=== PATIENT | male | born 1960 | race Caucasian/White ===

== ENCOUNTER 2016-07-12 22:13 | Observation (INO) ==
[2016-07-12] MEDS ORDERED: methylPREDNISolone SOD SUC 125 MG/2 ML VIAL IV STA (22:59)
[2016-07-12] MEDS ORDERED: MORPHINE 2 MG/1 ML SYRINGE IV STA (22:59)
[2016-07-12] MEDS ORDERED: ASPIRIN 325 MG TABLET PO STA (22:59)
[2016-07-12] MEDS ORDERED: NITROGLYCERIN 2% OINT 1 INCH/GM PACK TOP STA (22:59)
[2016-07-12] MEDS ORDERED: FUROSEMIDE 100 MG/10 ML VIAL IV STA (22:59)
[2016-07-12] MEDS ORDERED: ONDANSETRON 4 MG/2 ML VIAL IV STA (22:59)
[2016-07-12] MEDS ORDERED: ALBUTEROL 2.5 MG/3 ML NEB RESP TX SCH (23:00)
--- NOTE | 2016-07-12 23:03 | EKG Report ---
Stationary ECG Study [facility] ER Test Date: 07/12/2016 10:27:30 PM Pat Name: BETHEL ROWLAND Department: Room: Gender: M [employer] Detailer: Ravi : 1960 Requested by: Wes Talavera Order Number: [id number] Ibeth MD: KIM RAMESH Intervals Tracy Rate: 94 P: 81 VA: 159 QRS: 88 QRSD: 97 T: 46 QT: 364 QTc: 415 Interpretive Statements SINUS RHYTHM Electronically Signed On 07-13-16 09:21:57 SENIOR AGRICULTURAL ASSISTANT by KIM RAMESH [email or web address]
[2016-07-12 23:10] LABS: Basophils # 0.1 10*3/uL (0.0-0.2); Basophils % 0.9 % (0.0-0.8); Eosinophils # 0.3 10*3/uL (0.0-0.87); Eosinophils % 2.6 % (0.00-10.9); Hematocrit 41.9 VOL% (42.0-52.0); Hemoglobin 14.1 GM/DL (14.0-18.0); Immature Granulocytes % 0.3 %; Immature Granulocytes Absolute 0.03 #; Lymphocytes # 3.5 10*3/uL (1.4-4.0); Lymphocytes % 36.3 % (21.2-54.2); Mean Corpuscular HGB Conc 33.7 GM/DL (32-36); Mean Corpuscular Hemoglobin 27 PG (27-34); Mean Corpuscular Volume 80.4 FL (87-102); Monocytes # 0.9 10*3/uL (0.11-0.8); Monocytes % 9.1 % (1.7-12.7); Neutrophils # 4.9 10*3/uL (1.4-7.4); Neutrophils % 50.8 % (38.7-73.9); Platelet Count 257 10*3/uL (130-400); Red Blood Count 5.21 10*6/uL (3.8-5.5); Red Cell Distribution Width 13.2 % (9.3-17.3); White Blood Count 9.7 10*3/uL (4.5-13.71)
--- NOTE | 2016-07-12 23:13 | Emergency Department Note ---
David Lee Brittany, am scribing for, and in the presence of, Wes Mehta MD 23:06. Janine Lee Charles R, MD, personally performed the services described in this documentation, ascribed by Latisha Hernandez in my presence, and it is both accurate and complete 313 . Arrival - Arrival Chief Complaint: Chest Pain Stated Complaint: CHEST PAIN/SOB ED Nursing Triage Note: C/C shortness of breath, left arm pain, anxiety, arms tingling started this morning. Has been out of his ultram for several days. Mode of Arrival: Wheelchair Limitations: No Limitations Source: Patient, Significant other, RN Notes Reviewed Time Seen by Provider: 07/12/16 22:53 - History of Present Illness HPI Narrative: Patient is a 55 y/o white male with a history significant for COPD presenting to the ED with c/o dyspnea with an onset of this morning. Patient also has c/o chest pain with deep breaths, anxiety, and tingling of the bilateral fingertips. reports that patient has been out of Ultram for about 2 days, and notes that he becomes "agitated" when he goes without. She notes that patient has bad toenails and fingernails. She reports that she has tried, on multiple occasions, to discuss with patient the importance of cessation of smoking, but she states that he has not quit yet and in fact smokes a pack to two and a half packs/day. Patient has no other complaint/pain in the ED. Allergies/Adverse Reactions: Allergies Allergy/AdvReac Type Severity Reaction Status Date / Time No Known Allergies Allergy Verified 07/12/16 22:26 Home Medications: Home Medications Medication Instructions Recorded Confirmed Type traMADol TAB [Ultram] 100 mg PO BID 02/14/15 07/12/16 History Review of System - Review of System 12 point system: reviewed and no additional remarkable complaints except as stated - Review of System Respiratory: Present: respiratory distress Neurological: Present: paresthesias (bilateral hands) Psychiatric: Present: anxiety Medical,Surgical,& Family Hx - Medical History Neurology: No history of: Seizures HEENT: History of: Eye Problem (GLASSES) Respiratory: History of: COPD, Obstructive Sleep Apnea (CPAP) Genitourinary: History of: Kidney Stones Gastrointestinal: History of: Diverticulitis/ Diverticulosis Musculoskeletal: History of: Amputation (LBKA), Back/Neck Problems Other: History of: MRSA (LEFT HAND AND LEFT FOOT) - Surgical History Abdominal Surgeries: Surgical HX of: Abdominal Surgery, Cholecystectomy, Colonoscopy, EGD Orthopedic Surgeries: Surgical HX of;: Implanted Devices (LEFT ANKLE SCREWS) - Family History Family History: Reports;: Family Diabetes (BROTHER), Family Hypertension (FATHER ), Family Stroke (MOTHER) - Social History Smoking Status: Current every day smoker Frequency of Alcohol Use: Rarely Type of Drug Use: None Exam Vital Signs: Vital Signs Temperature 98.4 F 07/12/16 22:18 Pulse Rate 112 H 07/13/16 00:41 Respiratory Rate 20 07/13/16 00:41 Blood Pressure 134/96 07/12/16 22:18 O2 Sat by Pulse Oximetry 100 07/13/16 00:41 - General General appearance: alert, in no apparent distress, anxious - Head Head exam: Present: atraumatic, normocephalic - Eye Eye exam: Present: PERRL, EOMI - ENT ENT exam: Present: mucous membranes moist, TM's normal bilaterally - Neck Neck exam: Present: full ROM, trachea midline. Absent: tenderness - Chest Chest inspection: Present: symmetric chest wall rise. Absent: tenderness - Respiratory Respiratory exam: Present: rhonchi (bilateral), wheezes. Absent: normal lung sounds bilaterally - Cardiovascular Cardiovascular exam: Present: normal rhythm, tachycardia, normal heart sounds. Absent: regular rate - Abdominal Exam Abdominal exam: Present: soft, normal bowel sounds. Absent: distention, tenderness - Extremities Exam Extremities exam: Present: full ROM. 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 Absent: tenderness - Neurological Exam Neurological exam: Present: alert, oriented X3 - Psychiatric Psychiatric exam: Present: anxious - Skin Skin exam: Present: warm, dry, intact, normal color Course - Consultations Consultation #1: Dr. Keller the patient admits Dr. Carpio Time: 00:51 Results - Labs CBC & BMP: 07/12/16 22:57 07/12/16 22:57 Lab Results: I have reviewed the patients labs Labs: Laboratory Tests 07/12/16 22:57 WBC 9.7 RBC 5.21 Hgb 14.1 Hct 41.9 L MCV 80.4 L MCH 27 MCHC 33.7 RDW 13.2 Plt Count 257 MPV 10.0 Neut % (Auto) 50.8 Lymph % (Auto) 36.3 [place] % (Auto) 9.1 Eos % (Auto) 2.6 Baso % (Auto) 0.9 H Neut # (Auto) 4.9 Lymph # (Auto) 3.5 [place] # (Auto) 0.9 H Eos # (Auto) 0.3 Baso # (Auto) 0.1 Immature Gran % 0.3 Nucleated RBC % 0.0 Immature Gran # 0.03 Nucleated RBCs # 0.00 Laboratory Tests 07/12/16 07/12/16 22:57 22:57 INR 1.0 PT Patient/Control Mix 10.0 D-Dimer, Quantitative <= 0.5 Sodium 145 Potassium 3.7 Chloride 111 H Carbon Dioxide 24 Anion Gap 13.7 BUN 11 Creatinine 1.00 GFR Calculation 120 BUN/Creatinine Ratio 11.00 Glucose 115 H Calculated Osmolality 287.7 Calcium 8.6 Magnesium 2.0 Total Bilirubin < 0.39 AST 14 ALT 16 Alkaline Phosphatase 127 H Troponin I < 0.015 Total Protein 7.1 Albumin 3.2 L Globulin 3.9 H Albumin/Globulin Ratio 0.8 L Laboratory Tests 07/12/16 07/12/16 07/12/16 22:57 23:14 23:14 B-Natriuretic Peptide 4 Urine Color Yellow Urine Appearance Clear Urine pH 6.0 Ur Specific [place] 1.020 Urine Protein Negative Urine Glucose (UA) Negative Urine Ketones 5 Urine Blood Small Urine Nitrate Negative Urine Bilirubin Negative Urine Urobilinogen 2.0 H Urine Leukocytes Negative Urine RBC 12 Urine WBC 1 Urine Bacteria Occasional Hyaline Casts 4 Urine Mucus Occasional Urine Opiates Screen Negative Ur Barbiturates Screen Negative Ur Phencyclidine Scrn Negative U Amphetamine/Methamph Negative U Benzodiazepines Scrn Negative U Cocaine Metab Screen Negative U Cannabinoids Screen Negative Disposition Clinical Impression: Chest pain, Atypical chest pain, Tobacco abuse, Acute exacerbation of chronic obstructive airways disease, Exertional dyspnea, Stable angina Case discussed with: patient, patient's family Disposition: Still a Patient Condition: Stable Time of Disposition: 00:52
[2016-07-12 23:17] LABS: D-Dimer <= 0.5 MG/L FEU
[2016-07-12] MEDS ORDERED: NITROGLYCERIN 2% OINT 1 INCH/GM PACK TOP ONE (23:18)
[2016-07-12] MEDS ORDERED: ONDANSETRON 4 MG/2 ML VIAL ONE (23:18)
[2016-07-12] MEDS ORDERED: FUROSEMIDE 100 MG/10 ML VIAL ONE (23:19)
[2016-07-12] MEDS ORDERED: ASPIRIN 325 MG TABLET ONE (23:19)
[2016-07-12] MEDS ORDERED: MORPHINE 2 MG/1 ML SYRINGE ONE (23:19)
[2016-07-12] MEDS ORDERED: methylPREDNISolone SOD SUC 125 MG/2 ML VIAL ONE (23:19)
[2016-07-12 23:28] LABS: Alanine Aminotransferase 16 U/L (16-61); Albumin 3.2 G/DL (3.4-5.0); Alkaline Phosphatase 127 U/L (45-117); Aspartate Amino Transferase 14 U/L (0-37); Bilirubin,Total < 0.39 MG/DL (0.2-1.0); Blood Urea Nitrogen 11 MG/DL (7-18); Calcium 8.6 MG/DL (8.5-10.1); Glucose 115 MG/DL (74-106); Osmolality,Calculated 287.7 MOS/KG (273-304); Potassium 3.7 MMOL/L (3.5-5.1); Sodium 145 MMOL/L (136-145); Total Protein 7.1 G/DL (6.4-8.3); Troponin I Only < 0.015 NG/ML (0.00-0.045)
[2016-07-12 23:47] LABS: Apearance,Urine CLEAR (Clear); Bacteria,Urine Occasional /HPF (Few); Bilirubin,Urine Negative (Negative); Blood, Urine Small mg/dL (Negative); Glucose,Urine (UA) Negative (Negative); Hyaline Casts,Urine 4 /LPF (0-3); Ketones,Urine 5 mg/dL (Negative); Mucus,Urine Occasional /LPF (Occasional); Nitrite,Urine Negative (Negative); Protein,Urine Negative; RBC,Urine 12 /HPF (0-4); Urine Color Yellow (Yellow); WBC,Urine 1 /HPF (0-6)
[2016-07-12 23:52] LABS: Barbiturates Screen,Urine Negative (Negative); Benzodiazepines Screen,Urine Negative (Negative); Cannabinoid Screen,Urine Negative (Negative); Opiate Screen,Urine Negative (Negative); Phencyclidine Screen,Urine Negative (Negative)
[2016-07-13] MEDS ORDERED: ENOXAPARIN 120 MG/0.8 ML SYRINGE SUBCUT SCH (02:00)
[2016-07-13] MEDS ORDERED: SODIUM CHLORIDE 0.9% 1,000 ML IV SCH (02:10)
[2016-07-13] MEDS ORDERED: ONDANSETRON 4 MG/2 ML VIAL IV PRN (02:10)
[2016-07-13] MEDS ORDERED: ALBUTEROL/IPRATROPIUM 3 ML NEB RESP TX PRN (02:10)
[2016-07-13] MEDS ORDERED: MORPHINE 2 MG/1 ML SYRINGE IV PRN ×2 (02:10)
[2016-07-13 04:53] LABS: Basophils % 0.1 % (0.0-0.8); Eosinophils % 0.1 % (0.00-10.9); Hematocrit 41.5 VOL% (42.0-52.0); Hemoglobin 13.9 GM/DL (14.0-18.0); Immature Granulocytes % 0.6 %; Immature Granulocytes Absolute 0.05 #; Lymphocytes # 0.9 10*3/uL (1.4-4.0); Lymphocytes % 11.1 % (21.2-54.2); Mean Corpuscular HGB Conc 33.5 GM/DL (32-36); Mean Corpuscular Hemoglobin 27 PG (27-34); Mean Corpuscular Volume 80.4 FL (87-102); Mean Platelet Volume 10.1 FL (9.6-12.0); Monocytes # 0.1 10*3/uL (0.11-0.8); Monocytes % 1.2 % (1.7-12.7); Neutrophils % 86.9 % (38.7-73.9); Platelet Count 250 10*3/uL (130-400); Red Blood Count 5.16 10*6/uL (3.8-5.5); Red Cell Distribution Width 13.1 % (9.3-17.3); White Blood Count 8.1 10*3/uL (4.5-13.71)
[2016-07-13 05:25] LABS: Troponin I Only < 0.015 NG/ML (0.00-0.045)
[2016-07-13 05:36] LABS: Albumin 3.3 G/DL (3.4-5.0); Bilirubin,Total 0.4 MG/DL (0.2-1.0); Calcium 8.9 MG/DL (8.5-10.1); Magnesium 1.9 MG/DL (1.8-2.4); Potassium 3.8 MMOL/L (3.5-5.1); Risk Ratio 5.23; Thyroid Stimulating Hormone 1.33 uIU/ml (0.358-3.74); Total Protein 7.5 G/DL (6.4-8.3); VLDL CHOLESTEROL 16.8 MG/DL
--- NOTE | 2016-07-13 06:39 | Hospitalist History & Physical ---
Assessment and Plan - Time spent with patient Time spent discussing smoking cessation with patient: 3 to 10 minutes (1) Atypical chest pain Status: Acute Current Visit: Yes (2) Shortness of breath Status: Acute Current Visit: Yes (3) Smoker Status: Acute Current Visit: Yes (4) Obstructive sleep apnea Status: Acute Current Visit: Yes (5) COPD (chronic obstructive pulmonary disease) Status: Acute Assessment and plan: Plan: 07/12: We'll observe on telemetry, check serial cardiac enzymes. He is a smoker but otherwise has no hypertension, diabetes, or family history of heart disease. His pain and breathing are "much better." EKG and biomarkers thus far negative. His chest x-ray appears negative as well. This workup unrevealing we'll likely discharge home in the morning. Of note he said he had a stress test "a few years ago," he doesn't know where but according to him it was negative. Current Visit: Yes History of Present Illness Chief complaint: pain across the chest with shortness of breath History of present illness: Mr. Morejon is a 55 year old male with COPD, noncompliant as he continues to smoke a pack a day, noncompliant with CPAP, reported acute onset of bandlike pain across his chest sharp in nature round 5 p.m. and shortness of breath. He had no cough pain did not radiate although he felt brief sensation of tingling in his arms. He rated the pain as 5 out of 10 at worst. Of note he's been out of his tramadol for "a little while," and according to his he gets a little agitated when he is out of his tramadol. Chest x-ray EKG and biomarkers are negative at this point. His symptoms are constant but improving with medicine in the ER. He has no history of heart disease, no family history of heart disease, no history of hypertension, dyslipidemia, or diabetes. He states it "hurt a little bit to press on my chest," when I had the pain. Currently at the bedside he appears comfortable. Home Medications Medication Instructions Recorded Confirmed Type traMADol TAB [Ultram] 100 mg PO BID 02/14/15 07/12/16 History Albuterol Sulfate [Proair HFA] 2 puff INH Q4H PRN 07/13/16 07/13/16 History Allergies Allergy/AdvReac Type Severity Reaction Status Date / Time No Known Allergies Allergy Verified 07/12/16 22:26 Medical,Surgical,& Family Hx - Medical History Cardio: No history of: CAD, Hypertension, [place] Neurology: No history of: Seizures HEENT: History of: Eye Problem (GLASSES) Endocrine: No history of: Diabetes Mellitus (NIDDM) Respiratory: History of: COPD, Obstructive Sleep Apnea (NON COMPLIANT WITH CPAP) Genitourinary: History of: Kidney Stones Gastrointestinal: History of: Diverticulitis/ Diverticulosis Musculoskeletal: History of: Amputation (LBKA), Back/Neck Problems Other: History of: MRSA (LEFT HAND AND LEFT FOOT) - Surgical History Cardiac Surgeries: Patient Denies: Cardiac Catheterization Thoracic Surgeries: Patient denies;: Organ Transplant, Lobectomy Neurologic Surgeries: Patient denies: Neurologic Surgery Abdominal Surgeries: Surgical HX of: Abdominal Surgery, Cholecystectomy, Colonoscopy, EGD Reproductive Surgeries: Patient denies;: Genitourinary Surgery Orthopedic Surgeries: Surgical HX of;: Implanted Devices (LEFT ANKLE SCREWS) - Family History Family History: Reports;: Family Diabetes (BROTHER), Family Hypertension (FATHER ), Family Stroke (MOTHER) - Social History Smoking Status: Current every day smoker Have you smoked in the last 12 months: Yes Time spent discussing smoking cessation with patient: 3 to 10 minutes Frequency of Alcohol Use: Rarely Type of Drug Use: None Marital Status: Review of systems: A 12 point review of systems is negative except as specified in the HPI Exam - Constitutional Vitals: Period Temp Pulse Resp BP Sys/Mac Pulse Ox Last 24 Hr 96.8 F-98.4 F 94-101 14-20 101-142/54-84 95-97 Exam: EXAM: CONSTITUTIONAL: non toxic, NAD HEENT: NC, AT, OP benign, DIONNA, EOMI CV: RRR no m/g/r, chest wall nontender RESP: Distant breath sounds bilaterally, no w/r/r GI: abd soft, NT, ND, +bowel sounds INTEGUMENTARY: no lesions or rash EXTREMITIES: Consistent with left BKA NEURO: no focal deficits PSYCH: unremarkable, A/O x3 Results - Labs CBC & BMP: 07/13/16 04:29 07/13/16 04:29 Lab Results: I have reviewed the past 24 hour labs - EKG EKG shows: sinus rhythm - Diagnostic Findings Procedure: Chest x-ray: image reviewed by me
[2016-07-13] MEDS: NITROGLYCERIN 2% OINT 1 INCH/GM PACK TOP SCH ×4 (06:43→23:43)
--- NOTE | 2016-07-13 07:42 | XRay Report ---
History is short of breath Comparison 09/30/2015 The heart is normal in size. The lungs are clear. Impression: No acute pathology seen. PROCEDURE INTERPRETED AT [facility] DEPARTMENT OF RADIOLOGY Final Report Signed by: Dr. Leny Gregorio
--- NOTE | 2016-07-13 08:09 | XRay Report ---
Referring Physician: Wes Mehta Exam: XR chest 1V portable Date: July 13, 2016 at 5:45 AM Reason: Shortness of breath Comparison: Chest one view portable July 12, 2016, chest PA lateral April 26, 2013 Findings: The cardiac silhouette is normal in size. No focal consolidation, pneumothorax or pleural effusion is identified. There is mild stable apical pleural thickening. The osseous structures appear stable. Impression: No acute cardiopulmonary process is identified. PROCEDURE INTERPRETED AT [facility] DEPARTMENT OF RADIOLOGY Final Report Signed by: Dr. Gayle Kaminski
[2016-07-13] MEDS: ASPIRIN EC 325 MG TABLET PO SCH (08:48)
[2016-07-13] MEDS: PANTOPRAZOLE 40 MG TABLET PO SCH (08:48)
[2016-07-13] MEDS: traMADol 50 MG TABLET PO SCH ×2 (08:48→20:28)
[2016-07-13] MEDS: methylPREDNISolone SOD SUC 40 MG/1 ML VIAL IV SCH ×3 (08:49→23:40)
[2016-07-13] MEDS ORDERED: MAGNESIUM SULF RIDER 2 GM in PREMIX 1 EACH IV PRN (14:10)
[2016-07-13] MEDS ORDERED: DIAZEPAM 5 MG TABLET PO ONE (14:10)
[2016-07-13] MEDS ORDERED: POTASSIUM CHLORIDE RIDER 10 MEQ in PREMIX 1 EACH IV PRN (14:10)
[2016-07-13] MEDS ORDERED: diphenhydrAMINE CAP 25 MG CAPSULE PO ONE (14:10)
--- NOTE | 2016-07-13 14:26 | Cardiology Consult Note ---
<Mimi Agarwal E - Last Filed: 07/13/16 14:18> Assessment and Plan - Time spent with patient Time spent with patient: Greater than 30 minutes (1) Dyslipidemia Status: Acute Assessment and plan: New diagnoses. We'll start a lipid-lowering agent. Current Visit: Yes (2) Exertional dyspnea Status: Acute Assessment and plan: The plan of care listed above. Current Visit: Yes (3) Obstructive sleep apnea Status: Chronic Current Visit: No (4) Tobacco abuse Status: Chronic Assessment and plan: Greater than 5 minutes was spent discussing the merits of tobacco cessation. Current Visit: Yes (5) Chest pain Status: Acute Assessment and plan: Concerning for angina. Current Visit: Yes History of Present Illness - Data of Consult Patient: new to practice Consult date: 07/13/16 Requesting Physician: Rosita Carpio - Consult Narrative Reason for consult: chest pain, SOB History of present illness: Mr. Morejon is a 55 year old male who has never been followed by cardiology. Risk factors include: tobaccoism, hyperlipidemia, (new diagnosis), obesity and sedentary lifestyle. 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 Patient presented to the emergency department of [facility] after experiencing chest pain located in the left upper chest area, radiating down his left arm and shortness of breath. He acknowledges over the past 6-7 months, his shortness of breath with exertion has significantly worsened to the point that he finds himself avoiding numerous activities that he previously performed. Over the past week, patient has begun to experience left-sided chest discomfort with exertion. Particularly, yesterday and Wednesday while walking in the [place], he began to experience chest discomfort he describes as "[id number]". It radiated from the left upper chest to the shoulder and down his left arm. Rest relieves the discomfort. This occurred several times yesterday throughout the day when he returned home. He seemed to worsen last night when he was laying down individually this was relieved on its own. This morning, when he and his daughter walked outside to smoke a cigarette the discomfort reoccurred while walking back from the smoke area. He is currently chest pain-free. He is unable to rate the discomfort on a scale of 1-10. It did not cause diaphoresis, nausea vomiting or fatigue. ASSESSMENT/PLAN: 1. Chest pain - concerning for angina. I will undergo cardiac catheterization in the morning to be performed by Dr. Hillman. 2. DAVIS - multifactorial. We will schedule heart catheterization in the morning should his CT of chest and venous ultrasound returned with normal results. 3. Hyperlipidemia - start lipid lowering agent 4. Tobaccoism - themerits of tobacco cessation was discussed for greater than 5 minutes 5. AMBROCIO - non-compliant. Needs reassurance 6. COPD - being treated appropriately at this time CC: Rosita Carpio MD - Home Medications and Allergies Home Medications: Home Medications Medication Instructions Recorded Confirmed Type traMADol TAB [Ultram] 100 mg PO BID 02/14/15 07/12/16 History Albuterol Sulfate [Proair HFA] 2 puff INH Q4H PRN 07/13/16 07/13/16 History Allergies/Adverse Reactions: Allergies Allergy/AdvReac Type Severity Reaction Status Date / Time No Known Allergies Allergy Verified 07/12/16 22:26 Review of systems: REVIEW OF SYSTEMS: - Constitutional Constitutional: Present: Fatigue. Absent: syncope, anorexia, night sweats - EENT Eyes: Absent: blurry vision, loss of vision, diplopia Ears: Absent: decreased hearing, ear pain, ear discharge - Cardiovascular Cardiovascular: Present: chest pain with exertion, dyspnea on exertion, right lower extremity swelling. Denies palpitations. Absent: chest pain with deep breath, claudication, - Respiratory Respiratory: Present: DAVIS, cough. Absent: wheezing, hemoptysis, change in phlegm color - Gastrointestinal Gastrointestinal: Denies: constipation. Absent: abdominal pain, hematemesis, hematochezia, melena, change in bowel habits, nausea - Genitourinary Genitourinary: Absent: difficulty urinating, dysuria, urinary hesitancy, flank pain - Musculoskeletal Musculoskeletal: Present: back pain Absent: joint swelling, muscle cramps, muscle weakness - Neurological Neurological: Present: normal gait without frequent falls. Absent: dizziness, hemiparesis - Psychiatric Psychiatric: Absent: anxiety, depression, difficulty concentrating - Endocrine Endocrine: Present: fatigue. Absent: cold intolerance, heat intolerance, polyuria, polyphagia, polydipsia - Hematologic/Lymphatic Hematologic/Lymphatic: Present: easy bruising. Absent: easy bleeding, easy bruisability -Integumentary Integumentary: Absent: lesions, rashes, skin breakdown Medical,Surgical,& Family Hx - Medical History Cardio: No history of: CAD, Hypertension, [place] Neurology: No history of: Seizures HEENT: History of: Eye Problem (GLASSES) Endocrine: No history of: Diabetes Mellitus (NIDDM) Respiratory: History of: COPD, Obstructive Sleep Apnea (NON COMPLIANT WITH CPAP) Genitourinary: History of: Kidney Stones Gastrointestinal: History of: Diverticulitis/ Diverticulosis Musculoskeletal: History of: Amputation (LBKA), Back/Neck Problems Other: History of: MRSA (LEFT HAND AND LEFT FOOT) - Surgical History Cardiac Surgeries: Patient Denies: Cardiac Catheterization Thoracic Surgeries: Patient denies;: Organ Transplant, Lobectomy Neurologic Surgeries: Patient denies: Neurologic Surgery Abdominal Surgeries: Surgical HX of: Abdominal Surgery, Cholecystectomy, Colonoscopy, EGD Reproductive Surgeries: Patient denies;: Genitourinary Surgery Orthopedic Surgeries: Surgical HX of;: Implanted Devices (LEFT ANKLE SCREWS) - Family History Family History: Reports;: Family Diabetes (BROTHER), Family Hypertension (FATHER ), Family Stroke (MOTHER) - Social History Smoking Status: Current every day smoker Have you smoked in the last 12 months: Yes Time spent discussing smoking cessation with patient: 3 to 10 minutes Frequency of Alcohol Use: Rarely Type of Drug Use: None Marital Status: Lives With:: Spouse Functional capacity: independent ambulation Physical Examination Vital Signs Temp Pulse Resp BP Pulse Ox 98.4 F 92 H 24 134/96 99 07/12/16 22:18 07/12/16 22:18 07/12/16 22:18 07/12/16 22:18 07/12/16 22:18 General: Appears well with no apparent distress. Pleasant and cooperative. Appears comfortable. HEENT: PERRL, normocephalic, atraumatic. Mucous membranes moist. No jaundice noted. Conjunctiva moist and clear, sclerae anicteric Neck: No JVD/HJR, no thyromegaly or lymphadenopathy noted. No carotid bruit appreciated Cardiac: Regular rate and rhythm. No murmur rub or gallop. Lungs: Clear to auscultation without accessory muscle use to assist the respiratory pattern. Not requiring oxygen at this time. Abdomen: Soft, bowel sounds normoactive. Nontender and nondistended. No abdominal bruit or thrill noted. No masses noted. Musculoskeletal: No fluid collection. Decreased range of motion is noted. Extremities: No clubbing, cyanosis noted. No edema noted. Upper extremity pulses 2+. Right lower extremity trace edema. 2+ posterior tibial and dorsalis pedis pulses noted to the right lower extremity. Left below knee amputation noted. Capillary refill less than 3 seconds. Skin: No unusual lesions or rashes. No skin breakdown appreciated. Neuro: Awake, alert and oriented 3. Moves all extremities well without hemiparesis or paralysis. No essential tremor is appreciated. Result/EKG - Labs CBC & BMP: 07/13/16 04:29 07/13/16 04:29 Lab Results: I have reviewed the past 24 hour labs Labs: Laboratory Results - last 24 hr 07/13/16 07/13/16 07/13/16 04:29 04:29 04:29 WBC 8.1 RBC 5.16 Hgb 13.9 L Hct 41.5 L MCV 80.4 L MCH 27 MCHC 33.5 RDW 13.1 Plt Count 250 MPV 10.1 Neut % (Auto) 86.9 H Lymph % (Auto) 11.1 L Otero % (Auto) 1.2 L Eos % (Auto) 0.1 Baso % (Auto) 0.1 Neut # (Auto) 7.0 Lymph # (Auto) 0.9 L Otero # (Auto) 0.1 L Eos # (Auto) 0.0 Baso # (Auto) 0.0 Immature Gran % 0.6 Nucleated RBC % 0.0 Immature Gran # 0.05 Nucleated RBCs # 0.00 Sodium 143 Potassium 3.8 Chloride 106 Carbon Dioxide 24 Anion Gap 16.8 H BUN 11 Creatinine 1.00 GFR Calculation 120 BUN/Creatinine Ratio 11.00 Glucose 162 H Calculated Osmolality 287.0 Calcium 8.9 Magnesium 1.9 Total Bilirubin 0.40 AST 13 ALT 19 Alkaline Phosphatase 132 H Total Creatine Kinase 69 CK-MB (CK-2) < 1.0 Troponin I < 0.015 B-Natriuretic Peptide Total Protein 7.5 Albumin 3.3 L Globulin 4.2 H Albumin/Globulin Ratio 0.7 L Triglycerides 84 Cholesterol 209 H LDL Cholesterol 172.0 VLDL Cholesterol 16.8 HDL Cholesterol 40 Heart Disease Risk Ratio 5.23 Free T4 TSH 3rd Generation 1.330 07/13/16 07/13/16 04:29 04:29 WBC RBC Hgb Hct MCV MCH MCHC RDW Plt Count MPV Neut % (Auto) Lymph % (Auto) Otero % (Auto) Eos % (Auto) Baso % (Auto) Neut # (Auto) Lymph # (Auto) Otero # (Auto) Eos # (Auto) Baso # (Auto) Immature Gran % Nucleated RBC % Immature Gran # Nucleated RBCs # Sodium Potassium Chloride Carbon Dioxide Anion Gap BUN Creatinine GFR Calculation BUN/Creatinine Ratio Glucose Calculated Osmolality Calcium Magnesium Total Bilirubin AST ALT Alkaline Phosphatase Total Creatine Kinase CK-MB (CK-2) Troponin I B-Natriuretic Peptide 4 Total Protein Albumin Globulin Albumin/Globulin Ratio Triglycerides Cholesterol LDL Cholesterol VLDL Cholesterol HDL Cholesterol Heart Disease Risk Ratio Free T4 0.88 TSH 3rd Generation - Diagnostic Findings Procedure: Chest x-ray: report reviewed by ca - EKG EKG results: interpreted by ca EKG shows: sinus rhythm <Es Wilsonfer - Last Filed: 07/13/16 15:52> History of Present Illness - Consult Narrative History of present illness: I have personally interviewed and examined the patient, reviewed the chart and discussed medical decision-making with practitioner Any and also discussed this patient with Dr. Hillman. The patient presents with dyspnea on exertion, also a subacute presentation of chest pain and shortness of breath. I have discussed the role, risks and benefits of left heart catheterization with the patient and he agrees to proceed. This will be scheduled for tomorrow. He denies IV contrast allergy or contraindication to dual antiplatelet therapy. CC: Rosita Carpio MD Physical Examination Vital Signs Temp Pulse Resp BP Pulse Ox 98.4 F 92 H 24 134/96 99 07/12/16 22:18 07/12/16 22:18 07/12/16 22:18 07/12/16 22:18 07/12/16 22:18 Result/EKG - Labs CBC & BMP: 07/13/16 04:29 07/13/16 04:29 Labs: Laboratory Results - last 24 hr 07/13/16 07/13/16 07/13/16 04:29 04:29 04:29 WBC 8.1 RBC 5.16 Hgb 13.9 L Hct 41.5 L MCV 80.4 L MCH 27 MCHC 33.5 RDW 13.1 Plt Count 250 MPV 10.1 Neut % (Auto) 86.9 H Lymph % (Auto) 11.1 L Otero % (Auto) 1.2 L Eos % (Auto) 0.1 Baso % (Auto) 0.1 Neut # (Auto) 7.0 Lymph # (Auto) 0.9 L Otero # (Auto) 0.1 L Eos # (Auto) 0.0 Baso # (Auto) 0.0 Immature Gran % 0.6 Nucleated RBC % 0.0 Immature Gran # 0.05 Nucleated RBCs # 0.00 Sodium 143 Potassium 3.8 Chloride 106 Carbon Dioxide 24 Anion Gap 16.8 H BUN 11 Creatinine 1.00 GFR Calculation 120 BUN/Creatinine Ratio 11.00 Glucose 162 H Calculated Osmolality 287.0 Calcium 8.9 Magnesium 1.9 Total Bilirubin 0.40 AST 13 ALT 19 Alkaline Phosphatase 132 H Total Creatine Kinase 69 CK-MB (CK-2) < 1.0 Troponin I < 0.015 B-Natriuretic Peptide Total Protein 7.5 Albumin 3.3 L Globulin 4.2 H Albumin/Globulin Ratio 0.7 L Triglycerides 84 Cholesterol 209 H LDL Cholesterol 172.0 VLDL Cholesterol 16.8 HDL Cholesterol 40 Heart Disease Risk Ratio 5.23 Free T4 TSH 3rd Generation 1.330 07/13/16 07/13/16 04:29 04:29 WBC RBC Hgb Hct MCV MCH MCHC RDW Plt Count MPV Neut % (Auto) Lymph % (Auto) Otero % (Auto) Eos % (Auto) Baso % (Auto) Neut # (Auto) Lymph # (Auto) Otero # (Auto) Eos # (Auto) Baso # (Auto) Immature Gran % Nucleated RBC % Immature Gran # Nucleated RBCs # Sodium Potassium Chloride Carbon Dioxide Anion Gap BUN Creatinine GFR Calculation BUN/Creatinine Ratio Glucose Calculated Osmolality Calcium Magnesium Total Bilirubin AST ALT Alkaline Phosphatase Total Creatine Kinase CK-MB (CK-2) Troponin I B-Natriuretic Peptide 4 Total Protein Albumin Globulin Albumin/Globulin Ratio Triglycerides Cholesterol LDL Cholesterol VLDL Cholesterol HDL Cholesterol Heart Disease Risk Ratio Free T4 0.88 TSH 3rd Generation
--- NOTE | 2016-07-13 14:36 | CT Report ---
History is chest pain short of breath lower extremity edema Axial images obtained with 2-D multiplanar reconstruction images also stored and interpreted 80 cc Omni 350 utilized No enlarged mediastinal or hilar nodes seen. No persistent filling defects in the pulmonary arteries. Images through the upper show clips in the gallbladder fossa No significant pleural effusions present. There are mild emphysematous changes and blebs in the upper lung zones bilaterally. No consolidative infiltrates or discrete pulmonary nodule is seen. Impression: Mild blebs and emphysematous changes without evidence of pulmonary embolus seen PROCEDURE INTERPRETED AT [facility] DEPARTMENT OF RADIOLOGY Final Report Signed by: Dr. Leny Gregorio
--- NOTE | 2016-07-13 15:03 | Ultrasound Report ---
History short of breath chest pain right lower extremity edema Right lower extremity venous Doppler performed with grayscale, spectral Doppler, and color flow analysis performed and interpreted. No evidence of noncompressible, echogenic thrombus seen in the right common femoral, superficial femoral, popliteal, or saphenous veins Impression: No evidence of right lower extremity venous thrombus identified PROCEDURE INTERPRETED AT [facility] DEPARTMENT OF RADIOLOGY Final Report Signed by: Dr. Leny Gregorio
--- NOTE | 2016-07-13 15:09 | Hospitalist Progress Note ---
Assessment and Plan (1) Chest pain Status: Acute Assessment and plan: 1)chest pain- appreciate cards consult. cath tomorrow. I also counseled smoking cessation. He has been started on statin. 2)AMBROCIO- 3)COPD- compensated today. No wheezing. 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 tramadol prn. Current Visit: Yes (2) Shortness of breath Status: Acute Current Visit: Yes (3) Smoker Status: Acute Current Visit: Yes (4) COPD (chronic obstructive pulmonary disease) Status: Acute Current Visit: Yes (5) Dyslipidemia Status: Acute Current Visit: Yes Hospitalist: Subjective Interval history: Mr Morejon reports mild chest pain this am when he went out to smoke. He had a series of chest tightness/pain spells prior to admission. He had a stress test a few years ago. He is interested in outpatient stress test but agrees to let cardiology see him today. After discussing eval with cardiology he has agreed to cath tomorrow. Exam - Constitutional Vitals: Period Temp Pulse Resp BP Sys/Mac Pulse Ox Last 24 Hr 96.8 F-98.8 F 94-102 14-20 101-142/54-84 94-97 General appearance: normal weight, no acute distress - Head Head exam: Present: normocephalic, atraumatic - Eye Eye exam: Present: EOMI. Absent: scleral icterus - Respiratory Respiratory exam: Present: clear to auscultation bilaterally - Cardiovascular Cardiovascular exam: Present: regular rate and rhythm - GI/Abdominal GI/Abdominal exam: Present: normal bowel sounds, soft. Absent: tenderness - Extremities Exam Extremities exam: Absent: edema - Neurological Exam Neurological exam: Present: alert, oriented X3 - Skin Skin exam: Present: warm, dry Results - Labs CBC & BMP: 07/13/16 04:29 07/13/16 04:29 Lab Results: I have reviewed the past 24 hour labs
[2016-07-13] MEDS ORDERED: ATORVASTATIN 20 MG TABLET PO SCH (21:00)
[2016-07-14] MEDS: NITROGLYCERIN 2% OINT 1 INCH/GM PACK TOP SCH (06:38)
[2016-07-14] MEDS ORDERED: DIAZEPAM 5 MG TABLET ONE (08:50)
[2016-07-14] MEDS ORDERED: diphenhydrAMINE CAP 25 MG CAPSULE ONE (08:50)
[2016-07-14] MEDS: PANTOPRAZOLE 40 MG TABLET PO SCH (09:27)
[2016-07-14] MEDS: ASPIRIN EC 325 MG TABLET PO SCH (09:27)
[2016-07-14] MEDS: methylPREDNISolone SOD SUC 40 MG/1 ML VIAL IV SCH ×2 (09:55→17:10)
[2016-07-14] MEDS: traMADol 50 MG TABLET PO SCH ×2 (09:55→13:51)
[2016-07-14] MEDS ORDERED: fentaNYL 100 MCG/2 ML VIAL ONE (10:27)
[2016-07-14] MEDS ORDERED: HEPARIN/NACL 0.9% 2 UNITS/ML 1,000 ML IV ONE (10:27)
[2016-07-14] MEDS ORDERED: MIDAZOLAM 2 MG/2 ML VIAL ONE (10:27)
[2016-07-14] MEDS ORDERED: LIDOCAINE 1% 20 ML VIAL ONE (10:27)
[2016-07-14] MEDS ORDERED: NITROGLYCERIN DRIP 50 MG/250 ML BOTTLE IV ONE (10:27)
[2016-07-14] MEDS ORDERED: VERAPAMIL 5 MG/2 ML VIAL ONE (10:28)
--- NOTE | 2016-07-14 10:37 | History and Physical Update ---
Sedation H&P Update - History and Physical H&P was reviewed, the patient examined and there: are no changes in the patients condition since last H&P was completed. - Sedation Plan for Sedation: moderate Patient Consent: Procedure disscussed with patient and patinet has consented., Risks and benefits were discussed with patient,including infection,, bleeding, injury to surrounding structures, seizure, temporary nerve, Patient understands and accepts potential risks/benefits and agrees to, proceed. ASA Class: III Airway Assessment: Class III: Soft palate, base of uvula visible
[2016-07-14] MEDS ORDERED: ENOXAPARIN 60 MG/0.6 ML SYRINGE ONE (10:49)
--- NOTE | 2016-07-14 11:13 | Cardiac Catheterization ---
Date of Procedure:: 07/14/16 Pre-op Diagnosis: Dyspnea atypical chest pain Post-op diagnosis: same Procedure: 55-year-old man presents with symptoms suspicious for angina with risk factors. Is for diagnostic evaluation. Procedures performed: 1: Left heart catheterization 2: Coronary arteriography 3: Left ventriculography After obtaining informed consent the patient was brought to the cardiac catheterization lab where the right wrist was prepped and draped in the usual sterile fashion. Using intravenous sedation and local anesthesia a needle was inserted into the right radial artery and a guidewire was positioned without difficulty. A 5 Divehi sheath was advanced over the guidewire and positioned in the right radial artery without difficulty. Patient was given verapamil and nitroglycerin intra-arterial as a vasodilator. At this point a Robert catheter was advanced over a guidewire under fluoroscopic control to the ascending aorta where the left main coronary ostium was engaged and multiple angiograms were obtained in multiple angulations. Next this catheter was manipulated into the right coronary artery and multiple angiograms of the right coronary artery was undertaken in multiple views. A pigtail ventriculographic catheter was then used after removal of the Robert catheter over a wire. This catheter was advanced over a guidewire under fluoroscopic control to the ascending aorta where it was advanced across the aortic valve and ventriculography was obtained in the NOLAN projection injecting 24 mL of contrast at 12 mL/s. After completion of ventriculography this catheter then was pulled back from the ventricle to the aorta under hemodynamic monitoring and removed over a wire. Patient then underwent T R band application 2 mm above the radial skin entry site. 15 mL of air was in injected into the hemo band and the radial sheath was pulled. Air was removed from the TR band and 1 mL intervals until a arterial flash was noted. Additional 2 mL of air were added back to the TR band at this point. The patient tolerated procedure well. His right hand was warm with good capillary fill noted. Patient was transferred to the holding area having suffered no significant immediate complications. Hemodynamics: Please see accompanying data sheet Coronary angiography: Left coronary artery: Left main coronary artery is well-developed and free of significant obstructing lesions. The circumflex coronary artery is a large dominant vessel that possesses no significant lesions throughout its course. The branches of the circumflex likewise are free of significant obstructing lesions. The left anterior descending coronary artery is large vessel that extends to the apex of the ventricle. He has some minor diffuse irregularities throughout its middle portion measuring probably 20% maximal luminal diameter narrowing. Right coronary artery: Right coronary arteries a large co dominant vessel that possesses no significant lesions throughout its course. The branches of the right coronary artery are likewise free of significant obstructing lesions. Left ventriculography: After injection of contrast in the left ventricle is noted be of normal size with normal contractility. Mitral and aortic structures appear normal by ventriculography. Conclusions: 1: Angiographically no evidence of significant fixed coronary obstruction. 2: Normal left ventricular systolic function and ejection fraction in the 55% range 3: Normal end-diastolic pressures at rest. Discussion and recommendations: Patient presents with symptoms suspicious for angina with risk factors. He has no evidence related to significant atherosclerotic narrowing and further etiologies of his chest discomfort will be pursued. He'll need to continue risk factor modification. Anesthesia: moderate conscious sedation Surgeon / Physician: Amos Hillman Estimated blood loss: minimal Condition: stable Disposition: floor - Medications / Follow-up
[2016-07-14] MEDS ORDERED: SODIUM CHLORIDE 0.9% 1,000 ML IV SCH (11:30)
--- NOTE | 2016-07-14 15:02 | Discharge Summary ---
Hospital Course - Hospital Course Hospital Course: Mr Morejon presented with chest pain. He ruled out for OH. He had had several episodes of chest tightness and pain so after consulting, Dr James arranged for heart cath today. it was clear of coronary disease. He is ready to go home. He thinks that his pain may have come from being out of Tramadol. Another possibility is that he has reflux. He will try PPI for symptoms and follow up with PCP. I will refill his tramadol for a short time and he can continue to get refills from his PCP. - Time spent with patient Time with patient DS: Less than 30 minutes Diagnosis - Discharge Diagnosis (1) Chest pain Status: Resolved (2) Shortness of breath Status: Resolved (3) Smoker Status: Chronic (4) COPD (chronic obstructive pulmonary disease) Status: Chronic (5) Dyslipidemia Status: Acute Specialty Discharge - Follow Up or Referrals Follow up with: Jolie Murcia [Other] (at [facility] in 1 week) Discharge Plan - Discharge Data Disposition: Disch To Home/Self Care Condition at Discharge: Stable Discharge Diet: advance to your usual diet, heart healthy Activity: resume usual activities as tolerated - Discharge Medications New Atorvastatin [Lipitor] 20 mg PO BEDTIME #30 tablet Pantoprazole Tab [Protonix Tab] 40 mg PO DAILY #30 tablet Continue traMADol TAB [Ultram] 100 mg PO BID Albuterol Sulfate [Proair HFA] 2 puff INH Q4H PRN PRN Reason: Shortness Of Breath/Wheezing - Follow Up or Referral Follow Up: Jolie Murcia [Other] (at [facility] in 1 week) - Forms/Instructions Instructions: Coronary Artery Disease (GEN), Left Heart Catheterization (DC), How to Stop Smoking (GEN), Heart Healthy Diet (GEN), Chronic Obstructive Pulmonary Disease (GEN), Cigarette Smoking and Your Health, Home Security Professional (GEN ), How to Stop Smoking, Home Security Professional (GEN), David Post Cardiac Catheterization Instructions -Radial Artery Exam - Constitutional Vitals: Period Temp Pulse Resp BP Sys/Mac Pulse Ox Last 24 Hr 97.7 F-98.9 F 75-103 18-20 116-153/61-80 93-98 General appearance: normal weight, no acute distress - Head Head exam: Present: normocephalic, atraumatic - Eye Eye exam: Present: EOMI. Absent: scleral icterus - Respiratory Respiratory exam: Present: clear to auscultation bilaterally - Cardiovascular Cardiovascular exam: Present: regular rate and rhythm - GI/Abdominal GI/Abdominal exam: Present: normal bowel sounds, soft. Absent: tenderness - Extremities Exam Extremities exam: Absent: edema - Neurological Exam Neurological exam: Present: alert, oriented X3 Discharge Results Procedures and tests throughout hospitalization: Pending Orders 07/14/16 07:12 CL heart Routine DS: Provider Date of admission: 07/13/16 01:12 Primary care physician: . No PCP Attending physician on admission: Rosita Carpio MD Consults: 07/13/16 12:28 Consult to Physician [CONS] Routine Comment: Consulting Provider: Cardiology - [facility] 07/14/16 11:13 Consult to Cardiac Rehabilitation [CONS] Routine Reason for Cardiac Rehabilitation: Risk Factor Modification Discharging clinician: Rosita Carpio MD
[2016-07-14 19:24] VITALS: BP 148/84
== END 2016-07-14 18:27 | disposition home or self-care (01) ==
LOC: N.EDINP 22:13 → N.ED 22:13 → N.TELEN 07-13 01:30
PROVIDERS: ADMIT Internal Medicine; ATTEND Internal Medicine
PROC: CLCCHCL (ICD-10-PCS; 2016-07-14 11:15)

== ENCOUNTER 2019-07-28 11:26 | Observation (INO) ==
[2019-07-28] MEDS ORDERED: PROMETHAZINE 25 MG/1 ML VIAL IM PRN (11:57)
[2019-07-28] MEDS ORDERED: MORPHINE 4 MG/1 ML VIAL IV PRN (11:57)
[2019-07-28] MEDS ORDERED: ONDANSETRON 4 MG/2 ML VIAL IV PRN (11:57)
[2019-07-28] MEDS ORDERED: ACETAMINOPHEN 325 MG TABLET PO PRN (11:57)
[2019-07-28] MEDS ORDERED: hydrALAZINE 20 MG/1 ML VIAL IV PRN (12:01)
[2019-07-28 12:25] LABS: Basophils # 0.1 10*3/uL (0.0-0.2); Basophils % 0.6 % (0.0-0.8); Eosinophils # 0.1 10*3/uL (0.0-0.87); Eosinophils % 1.4 % (0.00-10.9); Hematocrit 44.1 VOL% (42.0-52.0); Hemoglobin 14.8 GM/DL (14.0-18.0); Immature Granulocytes % 0.3 %; Immature Granulocytes Absolute 0.03 #; Lymphocytes # 2.3 10*3/uL (1.4-4.0); Mean Corpuscular HGB Conc 33.6 GM/DL (32-36); Mean Corpuscular Volume 84.2 FL (87-102); Monocytes % 9.4 % (1.7-12.7); Neutrophils % 64.3 % (38.7-73.9); Platelet Count 293 T/CUMM (130-400); Red Blood Count 5.24 MC/CUMM (3.8-5.5); Red Cell Distribution Width 13.3 % (9.3-17.3); White Blood Count 9.5 T/CUMM (4-12)
[2019-07-28] MEDS: SODIUM CHLORIDE 0.9% 1,000 ML IV SCH ×2 (12:43→23:43)
[2019-07-28 12:44] LABS: Bilirubin,Total 0.7 MG/DL (0.2-1.0); Calcium 8.8 MG/DL (8.5-10.1); Osmolality,Calculated 265.2 MOS/KG (273-304); Total Protein 8.3 G/DL (6.4-8.3)
[2019-07-28 14:03] LABS: Apearance,Urine CLEAR (Clear); Bilirubin,Urine Negative (Negative); Blood, Urine Moderate mg/dL (Negative); Glucose,Urine (UA) Negative (Negative); Ketones,Urine Negative (Negative); Mucus,Urine Few /LPF (Occasional); Nitrite,Urine Negative (Negative); Protein,Urine 30 MG/DL; RBC,Urine 22 /HPF (0-4); Squamous Epithelial Cell,Urine Occasional /HPF (0-10); Urine Color Amber (Yellow); Urine Specific Gravity 1.015 (1.001-1.035); WBC,Urine <1 /HPF (0-6)
[2019-07-28] MEDS: CIPROFLOXACIN INJ 400 MG in PREMIX 1 EACH IV SCH (15:48)
[2019-07-28] MEDS: metroNIDAZOLE INJ 500 MG in PREMIX 1 EACH IV SCH (17:37)
[2019-07-28] MEDS: traMADol 50 MG TABLET PO SCH (21:25)
[2019-07-28] MEDS: DOCUSATE SODIUM 100 MG CAPSULE PO SCH (21:26)
[2019-07-29] MEDS: metroNIDAZOLE INJ 500 MG in PREMIX 1 EACH IV SCH ×3 (00:34→17:22)
[2019-07-29] MEDS: CIPROFLOXACIN INJ 400 MG in PREMIX 1 EACH IV SCH ×2 (03:29→15:43)
[2019-07-29 05:14] LABS: Basophils % 0.5 % (0.0-0.8); Eosinophils # 0.1 10*3/uL (0.0-0.87); Eosinophils % 1.8 % (0.00-10.9); Hematocrit 38.5 VOL% (42.0-52.0); Immature Granulocytes % 0.5 %; Immature Granulocytes Absolute 0.04 #; Lymphocytes # 2.4 10*3/uL (1.4-4.0); Lymphocytes % 30.3 % (21.2-54.2); Mean Corpuscular HGB Conc 33.8 GM/DL (32-36); Mean Corpuscular Volume 84.6 FL (87-102); Mean Platelet Volume 9.6 FL (9.6-12.0); Monocytes % 10.6 % (1.7-12.7); Neutrophils % 56.3 % (38.7-73.9); Platelet Count 260 T/CUMM (130-400); Red Blood Count 4.55 MC/CUMM (3.8-5.5); Red Cell Distribution Width 13.2 % (9.3-17.3); White Blood Count 7.9 T/CUMM (4-12)
[2019-07-29] MEDS: traMADol 50 MG TABLET PO SCH ×2 (10:17→21:18)
[2019-07-29] MEDS: DOCUSATE SODIUM 100 MG CAPSULE PO SCH ×2 (10:18→21:17)
[2019-07-29] MEDS: SODIUM CHLORIDE 0.9% 1,000 ML IV SCH ×2 (10:21→13:19)
[2019-07-29] MEDS: PANTOPRAZOLE 40 MG TABLET PO SCH (10:22)
[2019-07-29] MEDS: LOSARTAN 25 MG TABLET PO SCH (10:26)
[2019-07-30] MEDS: SODIUM CHLORIDE 0.9% 1,000 ML IV SCH ×3 (00:04→13:48)
[2019-07-30] MEDS: metroNIDAZOLE INJ 500 MG in PREMIX 1 EACH IV SCH ×3 (00:04→17:42)
[2019-07-30] MEDS: CIPROFLOXACIN INJ 400 MG in PREMIX 1 EACH IV SCH ×2 (03:37→16:33)
[2019-07-30] MEDS ORDERED: methylPREDNISolone SOD SUC 125 MG/2 ML VIAL IV ONE (07:56)
[2019-07-30] MEDS ORDERED: LACTULOSE 20 GM/30 ML UDCUP PO ONE (07:58)
[2019-07-30] MEDS: HYOSCYAMINE 0.125 MG TABLET PO SCH ×3 (08:15→21:46)
[2019-07-30] MEDS: PANTOPRAZOLE 40 MG TABLET PO SCH (08:17)
[2019-07-30] MEDS: traMADol 50 MG TABLET PO SCH ×2 (08:17→21:46)
[2019-07-30] MEDS: DOCUSATE SODIUM 100 MG CAPSULE PO SCH ×2 (08:17→21:46)
[2019-07-30] MEDS: LOSARTAN 25 MG TABLET PO SCH (08:17)
[2019-07-30 08:18] LABS: Basophils # 0.1 10*3/uL (0.0-0.2); Basophils % 0.6 % (0.0-0.8); Eosinophils # 0.1 10*3/uL (0.0-0.87); Eosinophils % 1.4 % (0.00-10.9); Hemoglobin 14.3 GM/DL (14.0-18.0); Immature Granulocytes % 0.3 %; Immature Granulocytes Absolute 0.03 #; Lymphocytes % 23.4 % (21.2-54.2); Mean Corpuscular Volume 83.8 FL (87-102); Mean Platelet Volume 9.1 FL (9.6-12.0); Monocytes % 7.8 % (1.7-12.7); Neutrophils % 66.5 % (38.7-73.9); Platelet Count 285 T/CUMM (130-400); Red Blood Count 5.01 MC/CUMM (3.8-5.5); Red Cell Distribution Width 13.4 % (9.3-17.3); White Blood Count 8.6 T/CUMM (4-12)
[2019-07-30 08:48] LABS: Bilirubin,Total 0.6 MG/DL (0.2-1.0); Calcium 8.8 MG/DL (8.5-10.1); Osmolality,Calculated 270.8 MOS/KG (273-304); Total Protein 7.9 G/DL (6.4-8.3)
[2019-07-30] MEDS: KETOROLAC 30 MG/1 ML VIAL IV SCH ×2 (10:32→21:46)
[2019-07-31] MEDS: metroNIDAZOLE INJ 500 MG in PREMIX 1 EACH IV SCH ×2 (00:42→10:01)
[2019-07-31] MEDS: SODIUM CHLORIDE 0.9% 1,000 ML IV SCH (03:10)
[2019-07-31] MEDS: CIPROFLOXACIN INJ 400 MG in PREMIX 1 EACH IV SCH (03:10)
[2019-07-31] MEDS: LOSARTAN 25 MG TABLET PO SCH (09:01)
[2019-07-31] MEDS: HYOSCYAMINE 0.125 MG TABLET PO SCH (09:01)
[2019-07-31] MEDS: PANTOPRAZOLE 40 MG TABLET PO SCH (09:01)
[2019-07-31] MEDS: DOCUSATE SODIUM 100 MG CAPSULE PO SCH (09:01)
[2019-07-31] MEDS: traMADol 50 MG TABLET PO SCH (09:01)
[2019-07-31 11:09] VITALS: BP 142/79
== END 2019-07-31 12:38 | disposition home or self-care (01) ==
LOC: N.2E
PROVIDERS: ADMIT Family Medicine; ATTEND Family Medicine